=== PATIENT | male | born 1990 | race Caucasian/White ===

== ENCOUNTER 2020-09-03 02:56 | Inpatient (IN) | payer OTHER ==
[2020-09-03] MEDS ORDERED: SODIUM CHLORIDE 0.9% 1,000 ML IV STA (03:00)
[2020-09-03] MEDS ORDERED: DIPH,PERTUS(ACELL)TETVAC-LF 0.5 ML VIAL IM ONE (03:00)
[2020-09-03 03:12] LABS: Glucose,Whole Blood 128 mg/dL (75-99)
[2020-09-03 03:24] LABS: ALT 26 U/L (4-49); AST 38 U/L (17-59); African American GFR (CKD) >90 (>60 ml/min/1.73 sqM); Albumin 4.9 g/dL (3.5-5.0); Alkaline Phosphatase 50 U/L (38-126); Anion Gap 10 mmol/L; Blood Urea Nitrogen 11 mg/dL (9-20); Calcium 9.2 mg/dL (8.4-10.2); Carbon Dioxide 21 mmol/L (22-30); Chloride 110 mmol/L (98-107); Glucose 133 mg/dL (74-99); Non-African American GFR(CKD) >90 (>60 ml/min/1.73 sqM); Potassium 4.1 mmol/L (3.5-5.1); Sodium 141 mmol/L (137-145); Total Bilirubin 0.4 mg/dL (0.2-1.3); Total Protein 7.4 g/dL (6.3-8.2)
[2020-09-03 03:28] LABS: Alcohol 173 mg/dL
[2020-09-03 03:33] LABS: Basophils # (A) 0.1 k/uL (0-0.2); Basophils % (A) 1 %; Eosinophils # (A) 0.1 k/uL (0-0.7); Eosinophils % (A) 1 %; HCT 49.1 % (39.0-53.0); HGB 15.6 gm/dL (13.0-17.5); Lymphocytes # (A) 1.4 k/uL (1.0-4.8); Lymphocytes % (A) 9 %; MCH 29.9 pg (25.0-35.0); MCHC 31.9 g/dL (31.0-37.0); MCV 93.7 fL (80.0-100.0); Mean Platelet Volume 7.4; Monocytes # (A) 0.7 k/uL (0-1.0); Monocytes % (A) 5 %; Neutrophils # (A) 12.8 k/uL (1.3-7.7); Neutrophils % (A) 84 %; Platelet Count 320 k/uL (150-450); RBC 5.24 m/uL (4.30-5.90); RDW 13.7 % (11.5-15.5); WBC 15.2 k/uL (3.8-10.6)
--- NOTE | 2020-09-03 03:33 | XR ---
EXAM: XR Pelvis, 1 or 2 Views CLINICAL HISTORY: ITS.REASON XR Reason: Trauma TECHNIQUE: Frontal view of the pelvis. COMPARISON: None available FINDINGS: Bones/joints: No acute fractures. No widening of the sacroiliac joints are. Sepsis. Bilateral femoral heads overlie their respective acetabulum. Soft tissues: Unremarkable. Mild fecal burden throughout the colon. IMPRESSION: Normal pelvis x-ray.
--- NOTE | 2020-09-03 03:35 | XR ---
EXAM: XR Chest, 1 View CLINICAL HISTORY: ITS.REASON XR Reason: trauma TECHNIQUE: Frontal view of the chest. COMPARISON: None available FINDINGS: Lungs: Hazy retrocardiac and medial left base opacity. No consolidation. Pleural space: No pleural effusions. No pneumothorax. Heart: Unremarkable. No cardiomegaly. Mediastinum: Unremarkable. Bones/joints: Unremarkable. IMPRESSION: Hazy bibasilar opacities which may be due to atelectasis, aspiration, or contusion in the setting of trauma.
[2020-09-03 03:45] LABS: INR 0.9 (<1.2); Prothrombin Time 9.5 sec (9.0-12.0)
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
[2020-09-03 03:57] LABS: Partial Thromboplastin Time 21.9 sec (22.0-30.0)
--- NOTE | 2020-09-03 04:03 | CT ---
EXAM: CT Head Without Intravenous Contrast CLINICAL HISTORY: ITS.REASON CT Reason: trauma TECHNIQUE: Axial computed tomography images of the head/brain without intravenous contrast. CTDI is 25.8 mGy and DLP is 827.4 mGy-cm. This CT exam was performed using one or more of the following dose reduction techniques: automated exposure control, adjustment of the mA and/or kV according to patient size, and/or use of iterative reconstruction technique. COMPARISON: None available FINDINGS: Brain: Unremarkable. No hemorrhage. No significant white matter disease. No edema. Ventricles: Unremarkable. No ventriculomegaly. Bones/joints: Unremarkable. No acute fracture. Soft tissues: Left frontal subcutaneous swelling. Sinuses: Unremarkable as visualized. No acute sinusitis. Mastoid air cells: Unremarkable as visualized. No mastoid effusion. IMPRESSION: No acute intracranial hemorrhage, herniation, or hydrocephalus. Right frontal subcutaneous swelling. No calvarial or skull base fractures. EXAM: CT Cervical Spine Without Intravenous Contrast CLINICAL HISTORY: ITS.REASON CT Reason: trauma TECHNIQUE: Axial computed tomography images of the cervical spine without intravenous contrast. CTDI is 11.8 mGy and DLP is 322.3 mGy-cm. This CT exam was performed using one or more of the following dose reduction techniques: automated exposure control, adjustment of the mA and/or kV according to patient size, and/or use of iterative reconstruction technique. COMPARISON: None available FINDINGS: Vertebrae: C7-T2 spinous process fractures. No spondylolisthesis. Vertebral body heights are maintained. Discs/spinal canal/neural foramina: No acute findings. No spinal canal stenosis. Soft tissues: No prevertebral edema. IMPRESSION: Mildly displaced C7-T2 spinous process fractures.
[2020-09-03] MEDS ORDERED: LIDOCAINE 1%-EPI 1:100,000 20 ML VIAL SQ STA (04:06)
--- NOTE | 2020-09-03 04:07 | CT ---
EXAM: CT Maxillofacial Without Intravenous Contrast CLINICAL HISTORY: ITS.REASON CT Reason: trauma TECHNIQUE: Axial computed tomography images of the face without intravenous contrast. CTDI is 0.17 mGy and DLP is 7 mGy-cm. This CT exam was performed using one or more of the following dose reduction techniques: automated exposure control, adjustment of the mA and/or kV according to patient size, and/or use of iterative reconstruction technique. COMPARISON: None available FINDINGS: Bones/joints: Nondisplaced bilateral nasal bone fractures. Pterygoid plates, zygomatic arches, and maxillary burkett are intact. No mandibular fracture. Temporomandibular joints are intact with no evidence of subluxation or dislocation. Soft tissues: Submental and left submandibular soft tissue swelling with right submental laceration. Orbits: Orbits and globes are normal in appearance. Sinuses: Paranasal sinuses and mastoid air cells are clear. IMPRESSION: 1. Nondisplaced bilateral nasal bone fractures. 2. Submental laceration and left submandibular soft tissue swelling.
[2020-09-03 04:08] LABS: Appearance,Urine Clear (Clear); Bilirubin,Urine Negative (Negative); Blood,Urine Moderate (Negative); Color,Urine Yellow; Glucose,Urine (UA) Negative (Negative); Hyaline Casts,Urine 38 /lpf (0-2); Ketones,Urine Negative (Negative); Leukocyte Esterase,Urine Negative (Negative); Mucus,Urine Occasional /hpf; Nitrite,Urine Negative (Negative); Protein,Urine 1+ (Negative); RBC,Urine 8 /hpf (0-5); Specific Gravity,Urine 1.037 (1.001-1.035); Squamous Epithelial Cell,Urine <1 /hpf (0-4); Urobilinogen,Urine <2.0 mg/dL (<2.0); WBC,Urine 2 /hpf (0-5)
[2020-09-03 04:11] LABS: Amphetamine Screen,Urine Not Detected (NotDetected); Barbiturate Screen,Urine Not Detected (NotDetected); Benzodiazepines Screen,Urine Not Detected (NotDetected); Cocaine Screen,Urine Not Detected (NotDetected); Methadone Screen, Urine Not Detected (NotDetected); Opiate Screen,Urine Not Detected (NotDetected); Oxycodone Screen, Urine Not Detected (NotDetected); Phencyclidine Screen,Urine Not Detected (NotDetected); Tricyclic Antidepressant,Urine Not Detected (NotDetected); Urn Cannabinoid Scrn Detected (NotDetected)
--- NOTE | 2020-09-03 04:11 | CT ---
EXAM: CT Chest With Intravenous Contrast CLINICAL HISTORY: ITS.REASON CT Reason: trauma TECHNIQUE: Axial computed tomography images of the chest with intravenous contrast. CTDI is 4.692 mGy and DLP is 353.55 mGy-cm. This CT exam was performed using one or more of the following dose reduction techniques: automated exposure control, adjustment of the mA and/or kV according to patient size, and/or use of iterative reconstruction technique. COMPARISON: None available FINDINGS: Lungs: Trace right basilar atelectasis. No mass. No consolidation. Pleural space: Unremarkable. No pneumothorax. No significant effusion. Heart: Unremarkable. No cardiomegaly. No significant pericardial effusion. Bones/joints: C7 and T2 spinous process fractures. No acute fracture. No dislocation. Soft tissues: Unremarkable. Vasculature: Unremarkable. No thoracic aortic aneurysm. Lymph nodes: Unremarkable. No enlarged lymph nodes. IMPRESSION: 1. No CT evidence of acute traumatic injury to the chest. 2. C7 and T2 spinous process fractures. EXAM: CT Abdomen and Pelvis With Intravenous Contrast CLINICAL HISTORY: ITS.REASON CT Reason: trauma TECHNIQUE: Axial computed tomography images of the abdomen and pelvis with intravenous contrast. CTDI is 4.692 mGy and DLP is 353.55 mGy-cm. This CT exam was performed using one or more of the following dose reduction techniques: automated exposure control, adjustment of the mA and/or kV according to patient size, and/or use of iterative reconstruction technique. COMPARISON: None available FINDINGS: Lung bases: Unremarkable. No mass. No consolidation. ABDOMEN: Liver: Unremarkable. No mass. Gallbladder and bile ducts: Unremarkable. No calcified stones. No ductal dilation. Pancreas: Unremarkable. No mass. No ductal dilation. Spleen: Unremarkable. No splenomegaly. Adrenals: Unremarkable. No mass. Kidneys and ureters: Symmetric renal parenchymal enhancement. No solid mass. No hydronephrosis. No nephrolithiasis. No perinephric stranding. Stomach and bowel: Unremarkable. No obstruction. No mucosal thickening. Moderate fecal burden throughout the colon. PELVIS: Appendix: No findings to suggest acute appendicitis. Appendix is pneumatized and normal in caliber the right lower quadrant. Bladder: Partially decompressed. No mass. Reproductive: Unremarkable as visualized. ABDOMEN and PELVIS: Intraperitoneal space: Unremarkable. No free air. No significant fluid collection. Bones/joints: No acute fracture. No dislocation. Soft tissues: Unremarkable. Vasculature: Unremarkable. No abdominal aortic aneurysm. Lymph nodes: Unremarkable. No enlarged lymph nodes. IMPRESSION: No CT evidence of acute traumatic injury to the abdomen or pelvis.
--- NOTE | 2020-09-03 04:15 | CT ---
EXAM: CT Thoracic Spine Without Intravenous Contrast CLINICAL HISTORY: ITS.REASON CT Reason: trauma TECHNIQUE: Axial computed tomography images of the thoracic spine without intravenous contrast. CTDI is 0 mGy and DLP is 0 mGy-cm. This CT exam was performed using one or more of the following dose reduction techniques: automated exposure control, adjustment of the mA and/or kV according to patient size, and/or use of iterative reconstruction technique. COMPARISON: None available FINDINGS: Vertebrae: C7 and T2 spinous process fractures. No vertebral body fractures or spondylolisthesis of the thoracic spine. Vertebral body heights are maintained. Discs/spinal canal/neural foramina: No acute findings. No spinal canal stenosis. Soft tissues: Unremarkable. IMPRESSION: C7 and T2 spinous process fractures. No acute vertebral body fractures. No spondylolisthesis. EXAM: CT Lumbar Spine Without Intravenous Contrast CLINICAL HISTORY: ITS.REASON CT Reason: trauma TECHNIQUE: Axial computed tomography images of the lumbar spine without intravenous contrast. CTDI is 0 mGy and DLP is 0 mGy-cm. This CT exam was performed using one or more of the following dose reduction techniques: automated exposure control, adjustment of the mA and/or kV according to patient size, and/or use of iterative reconstruction technique. COMPARISON: None available FINDINGS: Vertebrae: Unremarkable. No acute fracture. Discs/spinal canal/neural foramina: No acute findings. No spinal canal stenosis. Soft tissues: Unremarkable. IMPRESSION: No acute fractures or spondylolisthesis of the lumbar spine.
[2020-09-03] MEDS ORDERED: MORPHINE SULFATE 4 MG/ML SYRINGE IVP STA (04:28)
[2020-09-03] MEDS ORDERED: NALOXONE 0.4 MG/ML 1 ML VIAL IV PRN (06:08)
[2020-09-03] MEDS ORDERED: ONDANSETRON 4 MG/2 ML VIAL IVP PRN (06:08)
[2020-09-03] MEDS: MORPHINE SULFATE 4 MG/ML SYRINGE IV PRN ×4 (07:09→20:14)
[2020-09-03] MEDS: NICOTINE 14MG/24HR PATCH TRANSDERM SCH (07:57)
[2020-09-03] MEDS: SODIUM CHLORIDE 0.9% 1,000 ML IV SCH ×2 (07:57→14:38)
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
[2020-09-03] MEDS: HYDROcodone/APAP 5-325MG 1 EACH TAB PO PRN (23:17)
[2020-09-04] MEDS: MORPHINE SULFATE 4 MG/ML SYRINGE IV PRN ×5 (00:34→19:40)
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
[2020-09-04] MEDS: HYDROcodone/APAP 5-325MG 1 EACH TAB PO PRN ×5 (02:54→22:04)
[2020-09-04] MEDS: SODIUM CHLORIDE 0.9% 1,000 ML IV SCH ×2 (05:02→19:43)
[2020-09-04] MEDS: PANTOPRAZOLE 40 MG TABLET PO SCH (07:35)
[2020-09-04] MEDS: NICOTINE 14MG/24HR PATCH TRANSDERM SCH (07:35)
[2020-09-04] MEDS ORDERED: THIAMINE 100 MG/ML 2 ML VIAL IM STA (07:52)
[2020-09-04] MEDS ORDERED: LORazepam 2 MG/ML INJ IV PRN ×3 (07:52)
[2020-09-04] MEDS ORDERED: THIAMINE 100 MG TAB PO SCH (09:00)
[2020-09-04] MEDS: MULTIVITAMINS, THERA 1 EACH TAB PO SCH (11:40)
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
[2020-09-04] MEDS: THIAMINE 100 MG TAB PO SCH (16:59)
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
[2020-09-05] MEDS: MORPHINE SULFATE 4 MG/ML SYRINGE IV PRN ×2 (01:34→06:02)
[2020-09-05] MEDS: HYDROcodone/APAP 5-325MG 1 EACH TAB PO PRN ×3 (03:44→13:21)
[2020-09-05 05:03] VITALS: PULSE 70; RESP 16
[2020-09-05] MEDS: THIAMINE 100 MG TAB PO SCH ×2 (07:59→16:49)
[2020-09-05] MEDS: PANTOPRAZOLE 40 MG TABLET PO SCH (07:59)
[2020-09-05] MEDS: MULTIVITAMINS, THERA 1 EACH TAB PO SCH (07:59)
[2020-09-05] MEDS: NICOTINE 14MG/24HR PATCH TRANSDERM SCH (08:00)
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
[2020-09-05 10:29] LABS: Basophils % (A) 0 %; Eosinophils # (A) 0.3 k/uL (0-0.7); Eosinophils % (A) 4 %; HCT 38.8 % (39.0-53.0); HGB 12.9 gm/dL (13.0-17.5); Lymphocytes % (A) 13 %; MCH 30.9 pg (25.0-35.0); MCHC 33.2 g/dL (31.0-37.0); MCV 93.2 fL (80.0-100.0); Mean Platelet Volume 7.3; Monocytes # (A) 0.5 k/uL (0-1.0); Monocytes % (A) 6 %; Neutrophils # (A) 5.8 k/uL (1.3-7.7); Neutrophils % (A) 76 %; Platelet Count 200 k/uL (150-450); RBC 4.17 m/uL (4.30-5.90); RDW 12.7 % (11.5-15.5); WBC 7.7 k/uL (3.8-10.6)
[2020-09-05 11:43] VITALS: BP 113/72; TEMP 98.1
[2020-09-05] MEDS: SODIUM CHLORIDE 0.9% 1,000 ML IV SCH (13:22)
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
== END 2020-09-05 17:40 | disposition home or self-care (01) | DRG 552 ==
LOC: SUPCPDRO 02:56 → EC 02:56 → 6NMEDSUR 06:08
PROVIDERS: ADMIT Surgery; ATTEND Surgery
PROC: 0HQ1XZZ Repair Face Skin, External Approach (ICD-10-PCS; principal; 2020-09-03)
DX: S12.600A Unspecified displaced fracture of seventh cervical vertebra, initial encounter for closed fracture (principal); S22.029A Unspecified fracture of second thoracic vertebra, initial encounter for closed fracture; S22.019A Unspecified fracture of first thoracic vertebra, initial encounter for closed fracture; S14.3XXA Injury of brachial plexus, initial encounter; F10.129 Alcohol abuse with intoxication, unspecified; M43.14 Spondylolisthesis, thoracic region; F17.210 Nicotine dependence, cigarettes, uncomplicated; S01.511A Laceration without foreign body of lip, initial encounter; S01.81XA Laceration without foreign body of other part of head, initial encounter; S02.2XXA Fracture of nasal bones, initial encounter for closed fracture; S60.221A Contusion of right hand, initial encounter; M50.30 Other cervical disc degeneration, unspecified cervical region; M51.34 Other intervertebral disc degeneration, thoracic region; Z87.442 Personal history of urinary calculi; V58.5XXA Driver of pick-up truck or van injured in noncollision transport accident in traffic accident, initial encounter; Y92.410 Unspecified street and highway as the place of occurrence of the external cause; F19.11 Other psychoactive substance abuse, in remission; Z98.890 Other specified postprocedural states; Z87.39 Personal history of other diseases of the musculoskeletal system and connective tissue; Z87.01 Personal history of pneumonia (recurrent); Z80.8 Family history of malignant neoplasm of other organs or systems; Z82.49 Family history of ischemic heart disease and other diseases of the circulatory system
CPT/HCPCS: 12011; 36415; 70450; 70486; 71045; 71260; 72050; 72072; 72125; 72129; 72132; 72141; 72146; 72170; 74177; 80053; 80306; 80320; 81001; 84484; 85025; 85610; 85730; 86850; 86900; 86901; 90471; 90715; 93005; 96361; 96365; 96375; 96376; 99285